=== PATIENT | male | born 1995 | race Caucasian/White ===

== ENCOUNTER 2020-07-02 08:44 | Outpatient (REF) | payer OTHER, SELFPAY ==
[2020-07-02 09:05] LABS: COVID-19 Test Negative (Negative)
[2020-07-28 07:49] LABS: IDNOW Serial# 55D5AD1C
[2020-07-28 07:50] LABS: COVID-19 Test Negative (Negative)
== END 2020-07-02 08:45 | disposition home or self-care (01) ==
LOC: HO.LAB 08:44
PROVIDERS: Visit Provider Internal Medicine
DX: Z20.828 Contact with and (suspected) exposure to other viral communicable diseases (principal)
CPT/HCPCS: 87635; C9803

== ENCOUNTER 2020-08-11 14:36 | Outpatient (REF) | payer OTHER, SELFPAY ==
[2020-08-11 14:55] LABS: COVID-19 Test Negative (Negative); IDNOW Serial# 55D5AD1C
== END 2020-08-11 14:37 | disposition home or self-care (01) ==
LOC: HO.EMPCOV 14:36
PROVIDERS: Visit Provider Internal Medicine
DX: Z20.828 Contact with and (suspected) exposure to other viral communicable diseases (principal)
CPT/HCPCS: 87635; C9803

== ENCOUNTER → 2022-06-24 13:08 | Outpatient (RCR) | payer OTHER, SELFPAY ==
[2020-08-04 14:36] LABS: COVID-19 Test Negative (Negative)
[2020-08-21 09:58] LABS: SARS-COV-2 PCR UMBRL Not Detected
[2020-09-01 09:39] LABS: SARS-COV-2 PCR UMBRL Not Detected
[2020-09-03 08:13] LABS: SARS-COV-2 PCR UMBRL Not Detected
[2020-09-11 11:12] LABS: SARS-COV-2 PCR UMBRL Not Detected
[2020-09-18 13:23] LABS: SARS-COV-2 PCR UMBRL Not Detected
[2020-09-24 10:13] LABS: SARS-COV-2 PCR UMBRL NEGATIVE
== END | disposition home or self-care (01) ==
LOC: HO.EMPCOV 08-04
PROVIDERS: Visit Provider Internal Medicine
DX: Z20.828 Contact with and (suspected) exposure to other viral communicable diseases (principal)
CPT/HCPCS: 36415; 87635; C9803; U0003